=== PATIENT | female | born 1950 | race Caucasian/White ===

== ENCOUNTER 2020-03-29 06:09 | Observation (INO) | payer MEDICARE, MEDICAID ==
[~2020-03-29] VITALS: Ht 162.6 cm; Wt 103.9 kg
[2020-03-29] MEDS ORDERED: ASPIRIN CHEWABLE 81 MG TABLET. PO ONE (06:15)
--- NOTE | 2020-03-29 06:18 | EKG ---
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
--- NOTE | 2020-03-29 06:20 | PHYS DOC ---
Past History Past Medical History: Bipolar, Hypertension Past Medical History obesity, denied cardiac history Past Surgical History ganglion Smoking: Non-smoker Alcohol Use: None Drug Use: None General Adult EDM: Chief Complaint: chest pain HPI: HPI: Patient is a 69 year old female who presents for evaluation of chest pain, chest pressure, neck pain and shortness of air. She had chest pain that started last night and returned again this morning. Pt does not have a cardiac history. Pt states she recently had an echocardiogram at [facility]. Pt was moderately anxious on arrival. She has a history of bipolar disorder. Review of Systems: Review of Systems: Constitutional: Denies fever or chills Eyes: Denies change in visual acuity HENT: Denies nasal congestion or sore throat Respiratory: Denies cough has shortness of breath Cardiovascular: has chest pain and edema GI: Denies abdominal pain, nausea, vomiting, bloody stools or diarrhea : Denies dysuria Musculoskeletal: Denies back pain or joint pain Integument: Denies rash Neurologic: Denies headache, focal weakness or sensory changes Endocrine: Denies polyuria or polydipsia Lymphatic: Denies swollen glands Psychiatric: has anxiety and pressured speech Heart Score: HEART Score for Chest Pain: HEART Score for Chest Pain Response (Comments) Value History Moderately Suspicious 1 ECG Normal 0 Age > 65 2 Risk Factors 1 or 2 Risk Factors 1 Troponin < Normal Limit 0 Total 4 Risk Factors: Risk Factors: DM, Current or recent (<one month) smoker, HTN, HLP, family history of CAD, obesity. Risk Scores: Score 0 - 3: 2.5% MACE over next 6 weeks - Discharge Home Score 4 - 6: 20.3% MACE over next 6 weeks - Admit for Clinical Observation Score 7 - 10: 72.7% MACE over next 6 weeks - Early Invasive Strategies Current Medications: Current Meds: Current Medications Medications (Trade) Dose Ordered Sig/Micaela Start Time Stop Time Status Last Admin Dose Admin Aspirin (Aspirin Chewable) 324 mg 1X ONCE 03/29/20 06:15 03/29/20 06:16 UNV Physical Exam: PE: Constitutional: Well developed, well nourished, moderate distress, non-toxic appearance. [] HENT: Normocephalic, atraumatic, bilateral external ears normal, oropharynx moist, no oral exudates, nose normal. [] Eyes: PERRL, EOMI, conjunctiva normal, no discharge. [] Neck: Normal range of motion, no tenderness, supple, no stridor. [] Cardiovascular:Heart rate regular rhythm, no murmur [] Lungs & Thorax: Bilateral breath sounds clear to auscultation [] Abdomen: Bowel sounds normal, soft, no tenderness, no masses. [] Skin: somewhat diaphoretic, no erythema, no rash. [] Back: No tenderness, no CVA tenderness. [] Extremities: No tenderness, no cyanosis, no clubbing, ROM intact, lower extremity edema. [] Neurologic: Alert and oriented X 3, normal motor function, normal sensory function, no focal deficits noted. [] Psychologic: Affect normal, judgement normal, anxious mood. [] Current Patient Data: Labs: Laboratory Tests Test 03/29/20 06:15 White Blood Count 5.5 x10^3/uL Red Blood Count 4.81 x10^6/uL Hemoglobin 13.4 g/dL Hematocrit 40.5 % Mean Corpuscular Volume 84 fL Mean Corpuscular Hemoglobin 28 pg Mean Corpuscular Hemoglobin Concent 33 g/dL Red Cell Distribution Width 15.5 % Platelet Count 294 x10^3/uL Neutrophils (%) (Auto) 62 % Lymphocytes (%) (Auto) 26 % Monocytes (%) (Auto) 9 % Eosinophils (%) (Auto) 2 % Basophils (%) (Auto) 1 % Neutrophils # (Auto) 3.4 x10^3uL Lymphocytes # (Auto) 1.4 x10^3/uL Monocytes # (Auto) 0.5 x10^3/uL Eosinophils # (Auto) 0.1 x10^3/uL Basophils # (Auto) 0.0 x10^3/uL Sodium Level 134 mmol/L Potassium Level 4.1 mmol/L Chloride Level 100 mmol/L Carbon Dioxide Level 29 mmol/L Anion Gap 5 Blood Urea Nitrogen 15 mg/dL Creatinine 0.8 mg/dL Estimated GFR (Cockcroft-Gault) 71.1 BUN/Creatinine Ratio 19 Glucose Level 97 mg/dL Calcium Level 9.1 mg/dL Total Bilirubin 0.4 mg/dL Aspartate Amino Transf (AST/SGOT) 25 U/L Alanine Aminotransferase (ALT/SGPT) 38 U/L Alkaline Phosphatase 54 U/L Troponin I Quantitative 0.023 ng/mL EK-Ivb-G-Type Natriuretic Peptide 486 pg/mL Total Protein 6.8 g/dL Albumin 3.1 g/dL Albumin/Globulin Ratio 0.8 Current Medications Medications (Trade) Dose Ordered Sig/Micaela Route PRN Reason Start Time Stop Time Status Last Admin Dose Admin Aspirin (Aspirin Chewable) 324 mg 1X ONCE PO 03/29/20 06:15 03/29/20 06:43 DC 03/29/20 06:22 Nitroglycerin (Nitro-Bid Oint) 1 inch 1X ONCE TP 03/29/20 07:00 03/29/20 07:01 DC Morphine Sulfate (Morphine 4mg Syringe) 4 mg 1X ONCE IV 03/29/20 07:00 03/29/20 07:01 DC EKG: EKG: NSR, rate 86, rightward axis, RBBB, read at 0613, not STEMI[] Radiology/Procedures: Radiology/Procedures: [place] [address] IMAGING REPORT Signed PATIENT: WU LE ACCOUNT: [id number] : 1950 LOCATION: ER AGE: 69 SEX: F EXAM STATUS: REG ER ORD. PHYSICIAN: TOÑA CABRERA DO REASON: chest pain PROCEDURE: PORTABLE CHEST 1V AP chest. HISTORY: Chest pain Portable AP view was taken of the chest. Lungs are clear. Heart is upper normal in size. There is no pleural effusion. IMPRESSION: 1. No acute chest disease. Electronically signed by: Brandon Rizvi MD (03/29/2020 6:32 AM) [id number] DICTATED AND SIGNED BY: BRANDON RIZVI MD DATE: 03/29/20 0632 CC: PCP,NO; TOÑA CABRERA DO ~ [] Course & Med Decision Making: Course & Med Decision Making Pertinent Labs and Imaging studies reviewed. (See chart for details) [] Dragon Disclaimer: Dragon Disclaimer: This electronic medical record was generated, in whole or in part, using a voice recognition dictation system. 0700 Case was discussed with Dr. Salas the business continuity strategy director hospitalist. Pt is nearly chest pain free at this time. She will be admitted for overnight chest pain observation. Pt refused dose of morphine but wanted to take CBD oil instead. Pt was given NTG paste as well as a dose of aspirin. Pt states she had a recent echocardiogram at [facility]. Departure Departure: Impression: Primary Impression: Precordial chest pain Additional Impression: Right bundle branch block Disposition: ADMITTED INPATIENT (tele bed for observation) Admitting Physician: Cindy Salas Condition: STABLE Referrals: PCP,NO (PCP) Justification of Admission: Justification of Admission: Justification of Admission Dx: Yes Angina: Symp at Rest TOÑA CABRERA DO Mar 29, 2020 06:20
[2020-03-29 06:32] LABS: BASO % 1 % (0-3); EOS # 0.1 x10^3/uL (0.0-0.7); EOS % 2 % (0-3); HEMATOCRIT 40.5 % (36.0-47.0); HEMOGLOBIN 13.4 g/dL (12.0-15.5); LYMPH # 1.4 x10^3/uL (1.0-4.8); LYMPH % 26 % (24-48); MEAN CORPUSCULAR HEMOGLOBIN 28 pg (25-35); MEAN CORPUSCULAR HGB CONC 33 g/dL (31-37); MEAN CORPUSCULAR VOLUME 84 fL (79-100); MONO # 0.5 x10^3/uL (0.0-1.1); MONO % 9 % (0-9); NEUT # 3.4 x10^3uL (1.8-7.7); NEUT % 62 % (31-73); PLATELET COUNT 294 x10^3/uL (140-400); RED BLOOD COUNT 4.81 x10^6/uL (3.50-5.40); RED CELL DISTRIBUTION WIDTH 15.5 % (11.5-14.5); WHITE BLOOD COUNT 5.5 x10^3/uL (4.0-11.0)
--- NOTE | 2020-03-29 06:35 | RAD ---
AP chest. HISTORY: Chest pain Portable AP view was taken of the chest. Lungs are clear. Heart is upper normal in size. There is no pleural effusion. IMPRESSION: 1. No acute chest disease. Electronically signed by: Brandon Rizvi MD (03/29/2020 6:32 AM) [id number]
[2020-03-29 06:42] LABS: CALCIUM 9.1 mg/dL (8.5-10.1); CREATININE 0.8 mg/dL (0.6-1.0); GFR 71.1; POTASSIUM 4.1 mmol/L (3.5-5.1)
[2020-03-29 06:48] LABS: ALBUMIN 3.1 g/dL (3.4-5.0); ALBUMIN/GLOBULIN RATIO 0.8 (1.0-1.7); TOTAL BILIRUBIN 0.4 mg/dL (0.2-1.0); TOTAL PROTEIN 6.8 g/dL (6.4-8.2)
[2020-03-29] MEDS ORDERED: NITROGLYCERIN OINT 1 GM PACKET. TP ONE (07:00)
[2020-03-29] MEDS: MORPHINE SULFATE 4 MG/ML DISP.SYRIN. IV ONE ×2 (07:00→07:04)
[2020-03-29] MEDS ORDERED: ONDANSETRON PF 4 MG/2 ML VIAL. IVP PRN (07:15)
[2020-03-29 08:18] LABS: BACTERIA,URINE 0 /HPF (0-FEW); BILIRUBIN,URINE NEG (NEG); CLARITY,URINE CLEAR; COLOR,URINE YELLOW; GLUCOSE,URINE NEG (NEG); NITRITE,URINE NEG (NEG); RBC,URINE OCC /HPF (0-2); SQUAMOUS EPITHELIAL CELL,UR MOD /LPF; UROBILINOGEN,URINE 0.2 mg/dL (0.2 mg/dL)
--- NOTE | 2020-03-29 09:00 | NUR ---
The patient, WU LE, 69 y/o, F admitted by FAUSTINO GARCIA MD, was given written information regarding hospital policies, unit procedures and contact persons. Valuables were checked and left with patient. PT is resting in bed with cell phone and states she is going to call her sister. Pt is alert x 4 and has no pain at this time, she continues to ask for eyedrops. Will CTM.
[2020-03-29 09:08] VITALS: BP 154/65
--- NOTE | 2020-03-29 14:29 | HP ---
ADMIT DATE: 03/29/2020 HISTORY OF PRESENT ILLNESS: The patient is a 69-year-old female patient, who was brought to the Emergency Room this morning with a complaint of chest pain, chest pressure, neck pain, and shortness of air. She apparently had chest pain that started last night. Pain is mostly on the left side of the chest initially. When she went to sleep, the pain resolved, then she woke up again this morning with another episode of chest pain. She was unable to be more specific. She could not tell me how long the pain has been there. It was not associated with any nausea, vomiting, no diaphoresis. She did have some shortness of breath. By the time I saw her, she was chest pain free. She stated that she has an echocardiogram done at [facility] in [place], [place] about 2 weeks ago. She was evaluated in the Emergency Room, has had lab work done, which showed initial troponin to be 0.023. Her beta natriuretic peptide was 486. Her white cell count was normal. Her EKG showed that she was in sinus rhythm with right bundle branch block with no evidence of ST segment elevation or depression, was admitted to do 2 more sets of cardiac enzyme and consult the training director. PAST MEDICAL HISTORY: Significant for hypertension, type 2 diabetes, hypothyroidism, osteoarthritis. The patient stated that she was on thyroid medication, but now she takes only herbal medicine that her daughter buys for her. She is not on any conventional medicine. PAST SURGICAL HISTORY: Significant for ganglion cyst removal, tonsillectomy and nasal polypectomy. ALLERGIES: She is allergic to all BIPOLAR MEDICATION and some ANTIBIOTIC, but she cannot be more specific. FAMILY HISTORY: She has 2 brothers, one older and one younger and 1 sister, all alive. Her father at the age of 82 because of myocardial infarction. Mother at age of 84 because of cerebrovascular accident. SOCIAL HISTORY: She currently lives with her ex-. They were in 1985 and now back together. They have 2 daughters. She does not smoke, drink alcohol or use recreational drugs. 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 REVIEW OF SYSTEMS: As per history of present illness. PHYSICAL EXAMINATION: GENERAL: On arrival to the Emergency Room, she was somewhat anxious, slightly tachypneic, but there was no pallor, jaundice, cyanosis or thyromegaly. No jugular venous distention. No limb edema. VITAL SIGNS: Her heart rate was 85, blood pressure was 139/83, temperature was 98.3, respiratory rate was 28 and oxygen saturation was 97% on room air. HEAD, EYES, EARS, NOSE AND THROAT: Showed normocephalic, atraumatic. NECK: Supple. HEART: Showed normal first and second heart sounds. No gallop, rub or murmur. CHEST: Clear to auscultation. No crepitation or rhonchi. ABDOMEN: Distended, soft, nontender. NEUROLOGIC: She was somewhat anxious, but otherwise grossly intact. LABORATORY DATA: On admission showed a white cell count 5500, hemoglobin 13.4, hematocrit 40, MCV 84 and platelet count 294,000. Her chemistry showed a serum sodium 134, potassium 4.1, chloride 100, bicarbonate 29, anion gap of 5, BUN 15, creatinine 0.8, estimated GFR was 71 mL per minute. Her glucose was 97, calcium was 9.1. Total bilirubin, AST, ALT, alkaline phosphatase were normal. Troponin was 0.023 and her total protein was 6.8, albumin 3.1. Beta natriuretic peptide was 486. Her urinalysis showed the urine was yellow, clear with a pH of 7, specific gravity of 1.015. The urine was negative for protein, glucose, ketones, blood, nitrite and leukocyte esterase. There are no rbc's, no wbc's, and no bacteria. Her chest x-ray showed lungs are clear, heart is upper limit of normal. There is no pleural effusion. As I stated, her EKG showed that she was in sinus rhythm with right bundle branch block. ASSESSMENT AND PLAN: In summary, this is a 69-year-old female patient who came with somewhat atypical chest pain. She refused to take any morphine for pain and want to take only CBD oil. She was given aspirin, nitro paste. By the time I saw her, she was chest pain free. We will do 2 more sets of cardiac enzyme. We will check her fasting lipid profile. I will add D-dimer to her lab work and will contact [facility] to get some records from there. FAUSTINO GARCIA MD DR: CADENCE/aida JOB#: [id number] / [id number]
[2020-03-29 15:44] VITALS: BP 112/75
[2020-03-29 19:00] VITALS: BP 174/101
[2020-03-29 23:48] VITALS: BP 176/113
[2020-03-30] MEDS: LORazepam 0.5 MG TABLET PO PRN ×2 (02:30→06:47)
--- NOTE | 2020-03-30 06:00 | NUR ---
Pt is talkative and forceful. She is pleasant and cooperative with encouragement. Pt requests an xray for her neck which she states she hurt by falling backwards from an office chair hitting her neck. She talks constantly not allowing anyone else to get a word in. Pt requires interruption and strong encouragement and direction to accomplish ADLs and assessments. Pt showered with setup help only last night. She was up late into the night talking on the phone. She requested medication before settling for the night and slept afterwards all night. Will continue to monitor.
[2020-03-30 06:51] VITALS: BP 122/74
[2020-03-30] MEDS ORDERED: CONTRAST GIVEN MC PRN (09:45)
[2020-03-30] MEDS ORDERED: IOHEXOL 350 MG/ML 100 ML VIAL. IV ONE (09:45)
--- NOTE | 2020-03-30 14:49 | RAD ---
STUDY: 1. CT cervical spine without contrast 2. CT angiography of the chest-PE protocol INDICATION: Neck pain. Chest pain with elevated d-dimer and shortness of air. COMPARISON: None. TECHNIQUE: Axial CT imaging of the cervical spine performed without the use of intravenous contrast. Helical CT angiography of the chest performed after the intravenous administration of 98 cc Omnipaque 350. Coronal and sagittal reformats were obtained through the cervical spine as well as 3-D MIP reconstructions through the chest. One or more of the following individualized dose reduction techniques were utilized for this examination: 1. Automated exposure control 2. Adjustment of the mA and/or kV according to patient size 3. Use of iterative reconstruction technique. FINDINGS: CERVICAL SPINE: Motion degraded study. No acute fracture or aggressive osseous process. Scattered disc osteophyte complex formation greatest at C3-C4. Multilevel uncovertebral joint hypertrophy as well as facet degeneration. Osseous central canal narrowing greatest at C3-C4. No severe osseous encroachment on the neural foramina. Incompletely assessed intracranial contents reveals parenchymal volume loss and carotid siphon more so than vertebral artery calcific atherosclerosis. Calcific atherosclerosis that is relatively dense at the right carotid bifurcation. No soft tissue sequela of trauma is identified. Partially opacified left maxillary sinus. CHEST: Respiratory motion and patient body habitus and his assessment of the smaller pulmonary arteries. No main or lobar pulmonary embolism is seen and the adequately assessed segmental pulmonary arteries are patent as well. Scattered calcific plaque. Nonaneurysmal aorta. Mitral annular mineralization. Small amount of pericardial fluid. Small hiatal hernia. No mediastinal or hilar lymphadenopathy. Atelectatic changes which are relatively mild in greatest at the basilar right lower lung. No dense consolidation to suggest an organizing pneumonia. No suspicious pulmonary nodule by size criteria. No pleural effusion or pneumothorax. No concerning abnormality involving the body wall soft tissues. Unremarkable upper abdomen. T5-T6 endplate sclerosis appearing to be on a degenerative basis. Superior endplate Schmorl's node at T12. IMPRESSION: Cervical spine: 1. Degraded study on account of motion artifact. 2. No acute fracture or aggressive osseous abnormality. 3. Multifactorial degenerative changes greatest at C3-C4. 4. Multifocal calcific atherosclerosis with greatest involvement of the right carotid bifurcation. CHEST: 1. No pulmonary embolism is identified noting hindered assessment of smaller pulmonary arteries due to respiratory motion. 2. Mild volume loss at the lung bases. Electronically signed by: GRAHAM YIP MD (03/30/2020 2:46 PM) [id number]
--- NOTE | 2020-03-30 16:53 | DS ---
DATE OF DISCHARGE: 03/30/2020 HOSPITAL COURSE: The patient is a 69-year-old female patient who came to the Emergency Room with complaint of chest pain. She apparently was sitting in a chair and fell forward and had pain in her chest and also had neck pain. Denied any shortness of breath. Denied any nausea, vomiting or diaphoresis. She was extensively investigated and has 2 sets of cardiac enzymes; both ruled out myocardial infarction. Her EKG showed that she was in sinus rhythm at heart rate of 86 with right bundle branch block. Her chest x-ray was unremarkable. The lungs were clear. The heart is upper limit of normal. There is no pleural effusion or pneumothorax. We did also CT scan of the cervical spine and CT angio of the chest. The CT scan of the cervical spine showed no acute fracture or aggressive osseous abnormality. She has multifocal degenerative changes, greatest at C3-C4. She has also multifocal calcific atherosclerosis with greatest involvement of the right carotid bifurcation. CT scan of the chest showed no pulmonary embolism identified. Mild volume loss at the lung bases. We offered the patient pain management; however, the patient prefers her herbal medicine and also will go to aluminum molding machine operator and chiropractor. PHYSICAL EXAMINATION: GENERAL: When I saw her this afternoon, she looked well and was clearly in no apparent respiratory distress. No pallor, jaundice, cyanosis or thyromegaly. No jugular venous distention. No lower limb edema. VITAL SIGNS: Her heart rate was 107, blood pressure was 122/74, temperature 97.4, respiratory rate was 18, and oxygen saturation was 92% on room air. The rest of clinical exam is stable. LABORATORY DATA: Showed a serum sodium of 134, potassium 4.1, chloride 100, bicarbonate 29, anion gap of 5, BUN 15, creatinine 0.8, estimated GFR was 71 mL per minute. Her glucose was 97, calcium was 9.1. Total bilirubin, AST, ALT, alkaline phosphatase were normal. Total protein 6.8, albumin was 3.1. Her hemoglobin was 13, hematocrit 40 with normal white cell count and platelets. Her D-dimer was slightly elevated at 1.1. Urinalysis was unremarkable. DISCHARGE INSTRUCTIONS: The patient was discharged home to continue on herbal medicine that her daughter buys for her from [facility]. The patient prefers to go to a chiropractor and aluminum molding machine operator for treatment of her neck and chest pain. FAUSTINO GARCIA MD DR: CADENCE/aida JOB#: [id number] / [id number]
== END 2020-03-30 16:08 | disposition home or self-care (01) ==
LOC: ER 06:09 → EDBD 06:09 → 1 SOUTH 07:03
PROVIDERS: ADMIT Internal Medicine; ATTEND Internal Medicine
DX: R07.89 Other chest pain (principal); I45.10 Unspecified right bundle-branch block; E03.9 Hypothyroidism, unspecified; E11.9 Type 2 diabetes mellitus without complications; I10 Essential (primary) hypertension; M19.90 Unspecified osteoarthritis, unspecified site; F31.9 Bipolar disorder, unspecified; Z79.899 Other long term (current) drug therapy
CPT/HCPCS: 36415; 71045; 71275; 72125; 80053; 81001; 83880; 84484; 85025; 85379; 93005; 99285; G0378; Q9967; G0379; J2270

== ENCOUNTER 2020-05-13 05:53 | Emergency (ER) | payer MEDICARE, MEDICAID ==
[~2020-05-13] VITALS: Ht 162.6 cm; Wt 99.0 kg
[2020-05-13 05:53] VITALS: BP 182/110
--- NOTE | 2020-05-13 07:04 | PHYS DOC ---
Past History Past Medical History: Bipolar, Diabetes, Hypertension Past Surgical History: Other Additional Past Surgical Histo: removal of ganglion Smoking: Non-smoker Alcohol Use: None Drug Use: None General Adult EDM: Chief Complaint: MECHANICAL FALL HPI: HPI: Patient is a 70 years old female who was brought here by EMS from home after she fell outside while walking. Patient lives with her daughter. She woke up this morning, went out to get some fresh air at 5:30 am. Patient was out in front of the house when she suddenly heard a loud scream, she was started and lost her balance, fell down on the grass. She immediately got up. She walked back to the house and saw her daughter and her was arguing. The flooring machine feeder were called. Patient told them that she has back pain and neck pain. BUT SHE SAID IT IS HER CHRONIC PAIN. She is scheduled to have acupunture today. Patient denied any headache, no bowel or bladder incontinence, no weakness or numbness in extremities. Review of Systems: Review of Systems: Constitutional: Denies fever or chills Eyes: Denies change in visual acuity HENT: Denies nasal congestion or sore throat Respiratory: Denies cough or shortness of breath Cardiovascular: Denies chest pain or edema GI: Denies abdominal pain, nausea, vomiting, bloody stools or diarrhea : Denies dysuria Musculoskeletal: positive for back pain, no joint pain. Integument: Denies rash Neurologic: Denies headache, focal weakness or sensory changes Endocrine: Denies polyuria or polydipsia Lymphatic: Denies swollen glands Psychiatric: Denies depression or anxiety Heart Score: Risk Factors: Risk Factors: DM, Current or recent (<one month) smoker, HTN, HLP, family history of CAD, obesity. Risk Scores: Score 0 - 3: 2.5% MACE over next 6 weeks - Discharge Home Score 4 - 6: 20.3% MACE over next 6 weeks - Admit for Clinical Observation Score 7 - 10: 72.7% MACE over next 6 weeks - Early Invasive Strategies Allergies: Allergies: Allergies Uncoded Allergies Type Severity Reaction Last Updated Verified SOME ANTIBIOTIC Allergy Intermediate 03/29/20 BIPOLAR MEDS Adverse Reaction Intermediate 03/29/20 Physical Exam: PE: Constitutional: Well developed, well nourished, no acute distress, non-toxic appearance. [] HENT: Normocephalic, atraumatic, no evidence of injury, bilateral external ears normal, oropharynx moist, no oral exudates, nose normal. [] Eyes: PERRLA, EOMI, conjunctiva normal, no discharge. [] Neck: Normal range of motion, no tenderness, supple, no stridor. [] Cardiovascular:Heart rate regular rhythm, no murmur [] Lungs & Thorax: Bilateral breath sounds clear to auscultation [] Abdomen: Bowel sounds normal, soft, no tenderness, no masses, no pulsatile naman s. [] Skin: Warm, dry, no erythema, no rash. [] Back: No tenderness, no CVA tenderness. NO contusion, no midline vertebral tenderness to palpation. Extremities: No tenderness, no cyanosis, no clubbing, ROM intact, no edema. No contusion, no evidence of injury. Neurologic: Alert and oriented X 3, normal motor function, normal sensory function, no focal deficits noted. [] Psychologic: Affect normal, judgement normal, mood normal. [] Current Patient Data: Vital Signs: Vital Signs Date Time Temp Pulse Resp B/P (MAP) Pulse Ox O2 Delivery O2 Flow Rate FiO2 05/13/20 05:53 98.2 85 18 182/110 (134) 95 Room Air EKG: EKG: [] Radiology/Procedures: Radiology/Procedures: [] Course & Med Decision Making: Course & Med Decision Making Pertinent Labs and Imaging studies reviewed. (See chart for details) [] Dragon Disclaimer: Dragon Disclaimer: This electronic medical record was generated, in whole or in part, using a voice recognition dictation system. Departure Departure: Impression: Primary Impression: Back pain Disposition: 01 HOME/RESIDENCE PRIOR TO ADM Condition: STABLE Referrals: YVETTE ZHONG (PCP) Patient Instructions: Back Pain, Adult Scripts No Active Prescriptions or Reported Meds Justification of Admission: Justification of Admission: Justification of Admission Dx: N/A Angina: Symp at Rest KARLA HOLLIDAY DO May 13, 2020 07:04
== END 2020-05-13 11:54 | disposition home or self-care (01) ==
LOC: ER 05:53
DX: M54.9 Dorsalgia, unspecified (principal); M54.2 Cervicalgia; G89.29 Other chronic pain; I10 Essential (primary) hypertension; E11.9 Type 2 diabetes mellitus without complications; Z88.1 Allergy status to other antibiotic agents; W18.39XA Other fall on same level, initial encounter; Y93.01 Activity, walking, marching and hiking; Y92.098 Other place in other non-institutional residence as the place of occurrence of the external cause; Y99.8 Other external cause status
CPT/HCPCS: 99284